=== PATIENT | female | born 1980 | race African-American/Black ===

== ENCOUNTER 2016-10-01 21:02 | Emergency (ER) | payer OTHER ==
[~2016-10-01] VITALS: Ht 170.2 cm; Wt 99.8 kg
[~2016-10-01 21:02] MED LIST: COLACE100 MG PO; NOHOMEMEDICATIONS; TYLENOL325 MG PO
[2016-10-01] MEDS ORDERED: XANAX 0.25 MG0.25 MG PO (21:11)
[2016-10-01] MEDS ORDERED: AZITHROMYCIN500 MG PO (22:09)
[2016-10-01] MEDS ORDERED: PREDNISONE 20 M20 MG PO (22:09)
== END 2016-10-01 22:47 | disposition home or self-care (01) ==
LOC: ER 21:02
DX: J02.0 Streptococcal pharyngitis (principal); J45.909 Unspecified asthma, uncomplicated; Z90.89 Acquired absence of other organs; Z88.0 Allergy status to penicillin

== ENCOUNTER 2016-10-05 11:55 | Emergency (ER) | payer OTHER ==
[~2016-10-05] VITALS: Ht 167.6 cm; Wt 99.8 kg
[~2016-10-05 11:55] MED LIST changes: +AZITHROMYCIN500 MG PO; +PREDNISONE 20 M20 MG PO; +XANAX 0.25 MG0.25 MG PO
[2016-10-05] MEDS ORDERED: PREDNISONE 20 M20 MG PO (13:27)
[2016-10-05] MEDS ORDERED: MOBIC15 MG PO (13:27)
== END 2016-10-05 13:31 | disposition home or self-care (01) ==
LOC: ER 11:55
DX: J02.8 Acute pharyngitis due to other specified organisms (principal); J04.0 Acute laryngitis; J45.909 Unspecified asthma, uncomplicated; Z98.890 Other specified postprocedural states; Z88.0 Allergy status to penicillin; F10.99 Alcohol use, unspecified with unspecified alcohol-induced disorder

== ENCOUNTER 2016-10-19 12:19 | Emergency (ER) | payer OTHER ==
[~2016-10-19] VITALS: Ht 170.2 cm; Wt 102.1 kg
[~2016-10-19 12:19] MED LIST changes: +MOBIC15 MG PO
[2016-10-19] MEDS ORDERED: MAGIC MOUTHWASH SW&SWALLOW (13:31)
== END 2016-10-19 14:01 | disposition home or self-care (01) ==
LOC: ER 12:19
DX: J02.9 Acute pharyngitis, unspecified (principal); J45.909 Unspecified asthma, uncomplicated; Z90.49 Acquired absence of other specified parts of digestive tract; Z88.0 Allergy status to penicillin

== ENCOUNTER 2017-03-30 09:18 | Emergency (ER) | payer OTHER ==
[~2017-03-30] VITALS: Ht 170.2 cm; Wt 99.3 kg
[~2017-03-30 09:18] MED LIST changes: +MAGIC MOUTHWASH SW&SWALLOW; +PEPCID AC20 MG PO
[2017-03-30] MEDS ORDERED: IBUPROFEN 800800 M1 PO (09:38)
[2017-03-30] MEDS ORDERED: AZITHROMYCIN 2250 MG PO (10:03)
== END 2017-03-30 10:19 | disposition home or self-care (01) ==
LOC: ER 09:18
DX: J04.0 Acute laryngitis (principal); J02.0 Streptococcal pharyngitis; J45.909 Unspecified asthma, uncomplicated; F10.99 Alcohol use, unspecified with unspecified alcohol-induced disorder; Z90.49 Acquired absence of other specified parts of digestive tract; Z88.0 Allergy status to penicillin

== ENCOUNTER 2017-09-25 20:14 | Emergency (ER) | payer OTHER ==
[~2017-09-25] VITALS: Ht 170.2 cm; Wt 102.1 kg
[~2017-09-25 20:14] MED LIST changes: +AZITHROMYCIN 2250 MG PO; +IBUPROFEN 800800 M1 PO
[2017-09-25] MEDS ORDERED: APAP/CODEINE ELI5 M1 PO (23:18)
[2017-09-25 23:38] VITALS: BP 147/102
== END 2017-09-25 23:39 | disposition home or self-care (01) ==
LOC: ER 20:14
DX: J02.9 Acute pharyngitis, unspecified (principal); R13.10 Dysphagia, unspecified; J45.909 Unspecified asthma, uncomplicated; F10.99 Alcohol use, unspecified with unspecified alcohol-induced disorder; Z88.0 Allergy status to penicillin; Z90.49 Acquired absence of other specified parts of digestive tract

== ENCOUNTER 2017-12-30 09:06 | Emergency (ER) | payer OTHER ==
[~2017-12-30] VITALS: Ht 172.7 cm; Wt 102.1 kg
[~2017-12-30 09:06] MED LIST changes: +APAP/CODEINE ELI5 M1 PO
[2017-12-30 09:51] LABS: BASOPHILS 0.5 % (0.0-2.0); EOSINOPHILS 0.7 % (0.0-3.0); HEMATOCRIT 37.2 % (37.0-47.0); HEMOGLOBIN 12.2 gm/dL (12.0-15.0); LYMPHOCYTES 27.4 % (24.0-44.0); MCH 26.6 pg (26.0-34.0); MCHC 32.8 g/dL (28.0-37.0); PLATELET COUNT 305 thou/uL (150-400); POLYS 67.4 % (36.0-66.0); RDW 14.1 % (10.5-14.5); WBC 10.4 thou/uL (4.0-11.0)
[2017-12-30 09:58] LABS: CALCIUM 9.2 mg/dL (8.5-10.1); CREATININE 0.9 mg/dL (0.6-1.0); POTASSIUM 4.1 mmol/L (3.5-5.1)
[2017-12-30 10:05] LABS: ALBUMIN 3.2 g/dL (3.4-5.0); TOTAL BILIRUBIN 0.2 mg/dL (<0.1-1.0); TOTAL PROTEIN 7.6 g/dL (6.4-8.2)
== END 2017-12-30 12:25 | disposition home or self-care (01) ==
LOC: ER 09:06
PROVIDERS: Emergency Medicine
DX: R51 Headache (principal); R11.0 Nausea; R42 Dizziness and giddiness; R68.83 Chills (without fever); R05 Cough; J45.909 Unspecified asthma, uncomplicated; Z90.89 Acquired absence of other organs; Z88.0 Allergy status to penicillin

== ENCOUNTER 2019-05-09 12:33 | Emergency (ER) | payer OTHER ==
[~2019-05-09] VITALS: Ht 170.2 cm; Wt 102.1 kg
[2019-05-09 13:39] LABS: ABSOLUTE NEUTROPHILS 2.7 thou/uL (1.4-8.2); BASOPHILS 1.2 % (0.0-2.0); EOSINOPHILS 1.8 % (0.0-3.0); HEMATOCRIT 37.8 % (37.0-47.0); HEMOGLOBIN 12.4 gm/dL (12.0-15.0); LYMPHOCYTES 51.9 % (24.0-44.0); MCH 26.7 pg (26.0-34.0); MCHC 32.9 g/dL (28.0-37.0); MCV 81.2 fL (80.0-100.0); MONOCYTES 6.1 % (1.0-8.0); PLATELET COUNT 350 thou/uL (150-400); RBC 4.66 mil/uL (4.20-5.00); RDW 13.5 % (10.5-14.5); WBC 6.9 thou/uL (4.0-11.0)
[2019-05-09 13:52] LABS: CALCIUM 8.6 mg/dL (8.5-10.1); CREATININE 0.9 mg/dL (0.6-1.0)
[2019-05-09 15:27] LABS: URINE BILIRUBIN NEGATIVE (Negative); URINE BLOOD NEGATIVE (Negative); URINE CLARITY CLEAR; URINE COLOR YELLOW; URINE GLUCOSE-RANDOM* TRACE (Negative); URINE KETONES NEGATIVE (Negative); URINE LEUKOCYTES-REFLEX NEGATIVE (Negative); URINE NITRITE-REFLEX NEGATIVE (Negative); URINE PROTEIN (DIPSTICK) NEGATIVE (Negative); URINE SPECIFIC GRAVITY 1.015 (1.005-1.035); URINE UROBILINOGEN 0.2 E.U./dl (0.2-1.0)
[2019-05-09] MEDS ORDERED: IBUPROFEN 800800 M1 PO (15:50)
[2019-05-09] MEDS ORDERED: ONDANSETRON HCL4 M2 PO (15:50)
[2019-05-09 17:14] VITALS: BP 161/91
--- NOTE | 2019-05-10 08:06 | EKG ---
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
== END 2019-05-09 17:27 | disposition home or self-care (01) ==
LOC: ER 12:33
PROVIDERS: Nurse Practitioner Family
DX: B34.9 Viral infection, unspecified (principal); R42 Dizziness and giddiness; R11.10 Vomiting, unspecified; J45.909 Unspecified asthma, uncomplicated; Z90.49 Acquired absence of other specified parts of digestive tract; Z88.0 Allergy status to penicillin

== ENCOUNTER 2019-08-07 06:09 | Emergency (ER) | payer OTHER ==
[~2019-08-07] VITALS: Ht 170.2 cm; Wt 99.3 kg
[~2019-08-07 06:09] MED LIST changes: +ONDANSETRON HCL4 M2 PO
[2019-08-07 07:18] VITALS: BP 144/94
== END 2019-08-07 07:18 | disposition home or self-care (01) ==
LOC: ER 06:09
DX: J10.1 Influenza due to other identified influenza virus with other respiratory manifestations (principal); E66.9 Obesity, unspecified; J45.909 Unspecified asthma, uncomplicated; Z88.0 Allergy status to penicillin; Z90.49 Acquired absence of other specified parts of digestive tract